=== PATIENT | female | born 1955 | race Caucasian/White ===

== ENCOUNTER 2017-07-27 13:38 | Emergency (ER) | payer OTHER ==
[~2017-07-27] VITALS: Ht 165.1 cm; Wt 81.6 kg
[2017-07-27 13:59] VITALS: Ht 165.1 cm; Wt 81.6 kg
[2017-07-27 17:37] VITALS: BP 143/78
== END 2017-07-27 17:37 | disposition home or self-care (01) ==
LOC: ED 13:38
DX: J11.1 Influenza due to unidentified influenza virus with other respiratory manifestations (principal); I10 Essential (primary) hypertension
CPT/HCPCS: J7512; J7613; Q0092